=== PATIENT | male | born 1940 | race Two or more races ===

== ENCOUNTER 2019-06-04 21:09 | Emergency (ER) | payer MEDICARE, OTHER ==
[~2019-06-04] VITALS: Ht 162.6 cm; Wt 73.9 kg
[2019-06-04] MEDS ORDERED: IV NS 0.9% 1,000 ML BAG IV ONE (21:30)
[2019-06-04] MEDS ORDERED: ONDANSETRON HCL/PF 4 MG/2 ML VIAL IVP ONE (21:30)
--- NOTE | 2019-06-04 21:38 | NUR ---
BLOOD DRAWN AND SENT TO LAB
[2019-06-04] MEDS ORDERED: ONDANSETRON HCL/PF 4 MG/2 ML VIAL ONE (21:39)
[2019-06-04 21:43] LABS: BASOPHILS # (AUTO) 0.2 /CMM (0.0-0.2); BASOPHILS % (AUTO) 1.8 % (0.0-2.0); EOSINOPHILS % (AUTO) 1.2 % (0.0-6.0); HEMATOCRIT 47 % (39-51); HEMOGLOBIN 15.4 g/dL (13.5-17.5); LYMPHOCYTES # (AUTO) 1.2 /CMM (0.8-4.8); LYMPHOCYTES % (AUTO) 10.5 % (20.0-44.0); MEAN CORPUSCULAR HGB CONC 33 g/dl (31.0-36.0); MEAN CORPUSCULAR VOLUME 89 fL (80-96); MONOCYTES # (AUTO) 0.5 /CMM (0.1-1.30); MONOCYTES % (AUTO) 4.2 % (2.0-12.0); NEUTROPHILS # (AUTO) 9.3 /CMM (1.8-8.9); NEUTROPHILS % (AUTO) 82.3 % (43.0-81.0); PLATELET COUNT (AUTO) 212 /CMM (150-450); RED BLOOD CELL COUNT(AUTO) 5.25 MIL/uL (4.5-6.0); WHITE BLOOD COUNT (AUTO) 11.3 K/uL (4.3-11.0)
--- NOTE | 2019-06-04 21:47 | NUR ---
BIBS. TO ER BED 3. AAOX4. NO RESP DISTRESS NOTED, BREATHING EVEN AND UNLABORED. AMBULATORY. C/O DIZZINESS, NAUSEA AND VOMITING X 6 EPISODE AFTER DINNER. PT REPORT THAT ROOM IS SPINNING AND AGREAVATED BY THE LIGHT. MD AT BEDSIDE FOR EVAL. ORDERS, RECEIVED NOTED AND CARRIED OUT. IV LINE OBTAINED ON THE R AC 18G. BLOOD DRAWN AND GIVEN TO INSURANCE POLICY CLERK AT BEDSIDE.
[2019-06-04 21:49] LABS: CALCIUM, SERUM 9.2 mg/dL (8.5-10.1); CARBON DIOXIDE 27 mmol/L (21-32); CHLORIDE 102 mmol/L (98-107); GLUCOSE 131 mg/dL (74-106); POTASSIUM 3.5 mmol/L (3.5-5.1); SODIUM SERUM 139 mmol/L (136-145); UREA NITROGEN, BLOOD 14 mg/dL (7-18)
[2019-06-04 22:00] LABS: ALANINE AMINOTRANSFERASE 44 U/L (12-78); ALBUMIN 3.9 g/dL (3.4-5.0); ALKALINE PHOSPHATASE 150 U/L (46-116); ASPARTATE AMINOTRANSFERASE 32 U/L (15-37); BILIRUBIN,DIRECT 0.2 mg/dL (0.0-0.2); BILIRUBIN,TOTAL 0.8 mg/dL (0.2-1.0); TOTAL PROTEIN, SERUM 7.1 g/dL (6.4-8.2)
--- NOTE | 2019-06-04 23:02 | NUR ---
PT AMBULATED TO BATHROOM ON STEADY W/O ASSIST. PT VERBALIZED THAT HIS DIZZINESS IS BETTER AND NO FURTHER NAUSEA. MADE AWARE
[2019-06-04 23:14] VITALS: BP 140/78
--- NOTE | 2019-06-04 23:14 | NUR ---
Patient discharged to home in stable condition. Written and verbal after care instructions given. Patient verbalizes understanding of instruction.IV removed. Catheter intact and site benign. Pressure and 4x4 applied to site. No bleeding noted. Pt ambulatory with a steady gait
--- NOTE | 2019-06-04 23:16 | NUR ---
PT PICKED UP BY DAUGHTER
== END 2019-06-04 23:17 | disposition home or self-care (01) ==
LOC: ER 21:09
DX: H81.10 Benign paroxysmal vertigo, unspecified ear (principal); E78.5 Hyperlipidemia, unspecified; I10 Essential (primary) hypertension; R11.0 Nausea
CPT/HCPCS: 36415; 71045; 80048; 80076; 84484; 85025; 93005; 96361; 96374; 99285; J2405; J7030

== ENCOUNTER 2024-12-12 13:20 | Emergency (ER) | payer MEDICARE, OTHER ==
[~2024-12-12] VITALS: Ht 152.4 cm; Wt 65.3 kg
[2024-12-12 13:52] LABS: PLATELET COUNT (AUTO) 162 K/uL (150-450); RED BLOOD CELL COUNT(AUTO) 4.94 MIL/uL (4.5-6.0); RED CELL DISTRIBUTION WIDTH 14.1 % (11.5-15.0); WHITE BLOOD COUNT (AUTO) 10.3 K/uL (4.3-11.0)
[2024-12-12 14:00] LABS: CALCIUM, SERUM 8.7 mg/dL (8.5-10.1); CREATININE 1.0 mg/dL (0.6-1.3); SODIUM SERUM 140 mmol/L (136-145); UREA NITROGEN, BLOOD 16 mg/dL (7-18)
[2024-12-12] MEDS: IV NS 0.9% 500 ML BAG IV ONE (14:35)
[2024-12-12 17:49] VITALS: BP 137/85; TEMP 97.8; O2SAT 98
== END 2024-12-12 17:49 | disposition home or self-care (01) ==
LOC: ER 13:25
DX: R42 Dizziness and giddiness (principal); I11.9 Hypertensive heart disease without heart failure; E78.5 Hyperlipidemia, unspecified; J44.9 Chronic obstructive pulmonary disease, unspecified; Z60.3 Acculturation difficulty; Z88.0 Allergy status to penicillin
CPT/HCPCS: 36415; 71045-TC; 80048-TC; 84484-TC; 85025-TC